=== PATIENT | female | born 1960 | race Caucasian/White ===

== ENCOUNTER → 2016-03-25 | Outpatient (CLI) | payer OTHER ==
[~2016-03-25] MED LIST: CHOL400T PO; ESTRADIOL PO; FOLI1TAB7 PO; GINK120C3 PO; IBUP-103 PO; LORA10CA2 PO; MELA1TAB54 PO; METHYLTESTOSTERONE PO; OMEP20CA9 PO; TURM1CAP2 PO
--- NOTE | 2016-03-25 17:17 | DIAGNOSTIC IMAGING REPORT ---
LUMBAR SPINE 5 VIEWS HISTORY: Pain M25.50 [id number] COMPARISON: 06/02/2011 FINDINGS: There is no fracture. No subluxation. Mild degenerative intervertebral this changes throughout. Posterior elements are intact. IMPRESSION: Mild degenerative disc change. No acute process. No change from the prior study. Electronically signed by: Rufino Hogue M.D. 03/25/2016 5:16 PM Dictated Date/Time: 03/25/2016 5:16 PM
--- NOTE | 2016-03-25 17:18 | DIAGNOSTIC IMAGING REPORT ---
LEFT HIP UNILATERAL 2 VIEWS CLINICAL HISTORY: M25.50 [id number] pain COMPARISON: None. DISCUSSION: Very subtle flattening of the articular services of the acetabulum as well as femoral head. Possibility of a component of mild nondisplaced dysplastic changes considered. No evidence for acetabular protrusion. Small benign cortical cyst posterior aspect acetabular margin. Operative changes central soft tissue pelvis. There is no evidence for soft tissue swelling. IMPRESSION: Mild nonacute dysplastic change left hip. No acute process. Electronically signed by: Rufino Hogue M.D. 03/25/2016 5:17 PM Dictated Date/Time: 03/25/2016 5:16 PM
--- NOTE | 2016-03-25 17:19 | DIAGNOSTIC IMAGING REPORT ---
RIGHT HAND MIN 3 VIEWS ROUTINE CLINICAL HISTORY: M25.50 [id number] Right pain COMPARISON: 05/27/2015 DISCUSSION: Minimal arthritic changes. No change from the prior study. Several cortical erosions of the articular services of the distal interphalangeal joints. No acute bony abnormality. There is no evidence for soft tissue swelling. IMPRESSION: Minimal degenerative change. No acute process. No change from the prior exam. Electronically signed by: Rufino Hogue M.D. 03/25/2016 5:18 PM Dictated Date/Time: 03/25/2016 5:17 PM
[2016-03-25 18:00] LABS: BASO ABS # 0.05 K/uL (0-0.2); COMPLETE YES; EOS % 4.8 %; HEMATOCRIT 39.9 % (37-47); IG% 0.2 %; LYMPH ABS # 2.17 K/uL (1.2-3.4); MEAN CELL VOLUME 92.4 fL (80-100); MEAN CORPUSCULAR HEMOGLOBIN 32.2 pg (25-34); MEAN CORPUSCULAR HGB CONC 34.8 g/dl (32-36); MEAN PLATELET VOLUME 9.4 fL (7.4-10.4); MONO % 7.9 %; NEUT % 43.1 %; PLATELET COUNT 260 K/uL (130-400); RED BLOOD COUNT 4.32 M/uL (4.2-5.4); WHITE BLOOD COUNT 5.05 K/uL (4.8-10.8)
[2016-03-25 19:04] LABS: ALT/SGPT 41 U/L (12-78); AST/SGOT 19 U/L (15-37); CREATININE 0.97 mg/dl (0.60-1.20)
[2016-03-25 19:07] LABS: ALKALINE PHOSPHATASE 93 U/L (45-117)
[2016-03-29 18:38] LABS: ALBUMIN 3.9 G/DL (3.8-4.8); GAMMA GLOBULIN 0.9 G/DL (0.8-1.7); TOTAL PROTEIN 6.5 G/DL (6.2-8.3)
== END | disposition home or self-care (01) ==
LOC: C.RAD1850 16:53
PROVIDERS: ATTEND Internal Medicine Rheumatology
DX: M25.50 Pain in unspecified joint (principal); Z11.59 Encounter for screening for other viral diseases; E55.9 Vitamin D deficiency, unspecified; Z87.2 Personal history of diseases of the skin and subcutaneous tissue

== ENCOUNTER → 2016-03-30 | Outpatient (CLI) | payer OTHER ==
--- NOTE | 2016-03-30 14:32 | DIAGNOSTIC IMAGING REPORT ---
BONE SCAN WHOLE BODY CLINICAL HISTORY: M25.50 Polyarthralgia COMPARISON STUDY: Conventional radiographic study is of the hand hip and lumbar spine dated 03/25/2016 FINDINGS: The patient was injected with 27.2 mCi of technetium 99m MDP. Three-hour delayed whole body images were acquired. Minimal increased activity within the lower lumbar spine is felt to be degenerative. The study is felt to be normal for age. There are no findings to indicate metastatic disease. IMPRESSION: Essentially normal study for age. Mild increased activity within the lower lumbar spine consistent with a degenerative etiology. Electronically signed by: George Perera M.D. 03/30/2016 2:30 PM Dictated Date/Time: 03/30/2016 2:28 PM
== END | disposition home or self-care (01) ==
LOC: C.NUCL 09:58
PROVIDERS: ATTEND Internal Medicine Rheumatology
DX: M25.50 Pain in unspecified joint (principal)

== ENCOUNTER → 2016-10-06 | Outpatient (CLI) | payer OTHER ==
[2016-10-06 17:29] LABS: BASO % 0.4 %; BASO ABS # 0.02 K/uL (0-0.2); COMPLETE YES; EOS % 0.4 %; HEMATOCRIT 40.2 % (37-47); IG% 0.4 %; LYMPH % 39.1 %; LYMPH ABS # 2.19 K/uL (1.2-3.4); MEAN CELL VOLUME 92.4 fL (80-100); MEAN CORPUSCULAR HEMOGLOBIN 31.3 pg (25-34); MEAN CORPUSCULAR HGB CONC 33.8 g/dl (32-36); MONO % 9.1 %; NEUT % 50.6 %; PLATELET COUNT 268 K/uL (130-400); RED BLOOD COUNT 4.35 M/uL (4.2-5.4)
[2016-10-06 17:53] LABS: ALT/SGPT 25 U/L (12-78); CREATININE 0.97 mg/dl (0.60-1.20)
[2016-10-06 17:55] LABS: ALKALINE PHOSPHATASE 91 U/L (45-117); AST/SGOT 11 U/L (15-37)
== END | disposition home or self-care (01) ==
LOC: C.LAB1850 16:26
PROVIDERS: ATTEND Internal Medicine Rheumatology
DX: M51.36 Other intervertebral disc degeneration, lumbar region (principal); M12.9 Arthropathy, unspecified; M54.40 Lumbago with sciatica, unspecified side; M25.562 Pain in left knee

== ENCOUNTER → 2016-11-11 | Outpatient (CLI) | payer OTHER ==
[2016-11-11 14:46] LABS: BASO % 0.9 %; BASO ABS # 0.04 K/uL (0-0.2); COMPLETE YES; HEMATOCRIT 39.6 % (37-47); IG% 0.2 %; LYMPH % 47.9 %; LYMPH ABS # 2.03 K/uL (1.2-3.4); MEAN CORPUSCULAR HEMOGLOBIN 31.7 pg (25-34); MEAN CORPUSCULAR HGB CONC 34.8 g/dl (32-36); MEAN PLATELET VOLUME 9.4 fL (7.4-10.4); MONO % 6.1 %; NEUT % 44.9 %; PLATELET COUNT 268 K/uL (130-400); RED BLOOD COUNT 4.35 M/uL (4.2-5.4); WHITE BLOOD COUNT 4.24 K/uL (4.8-10.8)
[2016-11-11 15:14] LABS: ALT/SGPT 29 U/L (12-78); CREATININE 0.89 mg/dl (0.60-1.20)
[2016-11-11 15:17] LABS: ALKALINE PHOSPHATASE 89 U/L (45-117); AST/SGOT 16 U/L (15-37)
== END | disposition home or self-care (01) ==
LOC: C.LAB1850 13:34
PROVIDERS: ATTEND Internal Medicine Rheumatology
DX: Z51.81 Encounter for therapeutic drug level monitoring (principal); Z79.899 Other long term (current) drug therapy

== ENCOUNTER → 2017-03-14 | Outpatient (CLI) | payer OTHER ==
[~2017-03-14] MED LIST changes: -FOLI1TAB7 PO; +FOLI1TAB8 PO
[2017-03-14 16:45] LABS: HEMATOCRIT 41.5 % (37-47); HEMOGLOBIN 14.2 g/dL (12.0-16.0); MEAN CELL VOLUME 93.7 fL (80-100); MEAN CORPUSCULAR HEMOGLOBIN 32.1 pg (25-34); MEAN CORPUSCULAR HGB CONC 34.2 g/dl (32-36); MEAN PLATELET VOLUME 9.5 fL (7.4-10.4); PLATELET COUNT 276 K/uL (130-400); RED CELL DISTRIBUTION WIDTH CV 13.2 % (11.5-14.5); WHITE BLOOD COUNT 4.93 K/uL (4.8-10.8)
[2017-03-14 17:23] LABS: ALBUMIN 3.5 gm/dl (3.4-5.0); ALT/SGPT 53 U/L (12-78)
[2017-03-14 17:26] LABS: ALKALINE PHOSPHATASE 90 U/L (45-117); AST/SGOT 22 U/L (15-37); TOTAL PROTEIN 7.2 gm/dl (6.4-8.2)
== END | disposition home or self-care (01) ==
LOC: C.LAB1850 15:26
PROVIDERS: ATTEND Internal Medicine Rheumatology
DX: M07.60 Enteropathic arthropathies, unspecified site (principal); K50.919 Crohn's disease, unspecified, with unspecified complications; Z79.899 Other long term (current) drug therapy

== ENCOUNTER → 2017-03-22 | Outpatient (CLI) | payer OTHER ==
--- NOTE | 2017-03-22 15:41 | DIAGNOSTIC IMAGING REPORT ---
L LOWER EXT JOINT WITHOUT CLINICAL HISTORY: LEFT ANKLE PAIN/TWIST trauma. Pain. TECHNIQUE: Multi axial MRI acquisition COMPARISON STUDY: None FINDINGS: Signal characteristics the osseous structures indicate small foci of bone marrow edema involving the central medial talar dome. This measures approximate 5 mm. There is a very small joint effusion. There is been a small 2.5 mm loose body medially anterior to the anterior margin of the talus best seen sagittal image 15. There is mild edema of the subtalar and interosseous ligament.. There is mild soft tissue edematous change about both medial as well as lateral malleolus. There is moderate tendinopathy involving the posterior tibial tendon. Peroneal tendon appears to be unremarkable. The kidneys and is intact. There is no evidence for tendinopathy of the Achilles. IMPRESSION: 1. Normal Achilles tendon. 2. Tendinopathy of the posterior tibial tendon. 3. Small osteochondral defect central talar dome with a small 2.5 mm loose body anterior to the anterior margin of the tibial talar joint 4. Mild soft tissue edema medial and lateral to the ankle area and 5. All remaining ligamentous and tendinous structures are intact. The above report was generated using voice recognition software. It may contain grammatical, syntax or spelling errors. Electronically signed by: Rufino Hogue M.D. 03/22/2017 3:39 PM Dictated Date/Time: 03/22/2017 3:30 PM
== END | disposition home or self-care (01) ==
LOC: C.MRI 14:36
PROVIDERS: ATTEND Internal Medicine Rheumatology
DX: M07.60 Enteropathic arthropathies, unspecified site (principal); Z79.1 Long term (current) use of non-steroidal anti-inflammatories (NSAID); Z79.899 Other long term (current) drug therapy

== ENCOUNTER → 2017-03-28 | Outpatient (CLI) | payer OTHER ==
[~2017-03-28] MED LIST changes: +OPTIRAY 320 IV PRN
--- NOTE | 2017-03-28 14:21 | DIAGNOSTIC IMAGING REPORT ---
CT ENTEROGRAPHY OF THE ABDOMEN AND PELVIS WITH CONTRAST CLINICAL HISTORY: Diarrhea. Crohn's disease. COMPARISON STUDY: CT of the abdomen and pelvis October 31, 2008 and small bowel follow-through June 13, 2014. TECHNIQUE: The patient was premedicated for an IV dye allergy as per protocol. The patient ingested Volumen. Following IV administration of 93 mL of Optiray-320, axial images of the abdomen and pelvis were obtained from the lung bases to the proximal femurs. Images were reviewed in the axial, sagittal, and coronal planes. IV contrast was administered without complication. A dose lowering technique was utilized adhering to the principles of ALARA. CT DOSE: 952.89 mGy.cm FINDINGS: Lung bases are clear. The liver, spleen, adrenal glands and pancreas are normal. There is no biliary ductal dilatation status post cholecystectomy. Several subcentimeter bilateral renal lesions are too small to characterize but likely reflect cysts. There is no hydronephrosis. There is no abdominal or pelvic lymphadenopathy. There is no fluid collection to suggest abscess. No perianal/perirectal abscess is identified. The patient is status post colectomy with ileoanal anastomosis. No bowel wall thickening is noted. There is no evidence for a bowel obstruction. No suspicious osseous lesions are identified. IMPRESSION: 1. No acute process within the abdomen or pelvis. 2. Status post colectomy with ileoanal anastomosis. No bowel obstruction. No bowel wall thickening. Electronically signed by: Sushant Arriaza M.D. 03/28/2017 2:19 PM Dictated Date/Time: 03/28/2017 2:11 PM
== END | disposition home or self-care (01) ==
LOC: C.CTS 12:16
PROVIDERS: ATTEND Physician Assistant
DX: R19.7 Diarrhea, unspecified (principal); K50.90 Crohn's disease, unspecified, without complications

== ENCOUNTER → 2017-05-03 | Day surgery (SDC) | payer OTHER ==
[2017-04-20 13:51] VITALS: Ht 170.2 cm; Wt 85.9 kg
[~2017-05-03] VITALS: Ht 170.2 cm; Wt 85.9 kg
[~2017-05-03] MED LIST changes: +ADAL40KI INJ; -CHOL400T PO; +CLB100 PO; +CLR10 PO; +ESTR1 PO; -ESTRADIOL PO; +FEXO1TAB49 PO; -GINK120C3 PO; -IBUP-103 PO; +LIDOCAINE HCL 2% 2 ML VIAL (20MG/ML) ONE; -LORA10CA2 PO; -MELA1TAB54 PO; +METH2.5T PO; -OMEP20CA9 PO; +OMEP40CA41 PO; -OPTIRAY 320 IV PRN; +PROPOFOL IV EMULSION 10 MG/ML 20 ML VIAL IV ONE; +SODIUM CHLORIDE 0.9% 500ML 500 ML IV ONE; -TURM1CAP2 PO
--- NOTE | 2017-05-03 12:05 | Endo History and Physical ---
History & Physical Date of Service: May 03, 2017. Chief Complaint: Crohn's Disease Referring Physician: Dr. Perez History of Present Illness 56 yo CF who presents for colonoscopy secondary to Crohn's disease. Past Medical History Arthritis, Asthma, Gastrointestinal Disorder, Anxiety, Reflux, Gynecological Problems, Chronic Steroid Use, Depression Past Surgical History Hx Cardiac Surgery: No Hx Internal Defibrillator: No Hx Pacemaker: No Hx Abdominal Surgery: Yes (ZAHIRA, J-POUCH SURGERY 2 PROCEDURE (COLON RESECTION) , BURAK, OOPHERECTOMY X 2) Hx of Implantable Prosthesis: No Hx Post-Op Nausea and Vomiting: No Hx Cancer Surgery: No Hx Thoracic Surgery: No Hx Orthopedic: No Hx Urinary Tract Surgery: No Family History Colon CA Social History Smoking Status: Never Smoker Hx Substance Use: No Hx Alcohol Use: Yes (OCCASIONALLY) Allergies Coded Allergies: Iodinated Contrast Media (Verified Allergy, Severe, SHORTNESS OF BREATH -- > TOLERATES MAGNIVEST, 05/03/17) POLLEN (Verified Allergy, Unknown, SEASONAL ALLERGIES, 05/03/17) Current Medications Reported Home Medications Medications Dose Route/Sig Max Daily Dose Days Date Category Claritin (Loratadine) 10 Mg Tab 10 Mg PO DAILY 05/03/17 Reported Celebrex (Celecoxib) 100 Mg Cap 1 Cap PO BID 04/20/17 Reported Zayra Allergy (Fexofenadine Hcl) 180 Mg Tab 1 Tab PO QAM 04/20/17 Reported Humira Pen (Adalimumab) 40 Mg/0.8 Ml Kit 1 Dose INJ [id number] 04/20/17 Reported Folvite (Folic Acid) 1 Mg Tab 1 Mg PO QAM 04/20/17 Reported [Methyltestosterone] 0.625 Cap PO QAM 04/20/17 Reported Methotrexate 2.5 Mg Tab 4 Tab PO WK 04/20/17 Reported Estrace (Estradiol) 1 Mg Tab 1 Mg PO QAM 04/20/17 Reported Prilosec (Omeprazole) 40 Mg Cap 40 Mg PO QAM 04/20/17 Reported Vital Signs Weight (Kilograms): 85.91 Height (Feet): 5 Height (Inches): 7 Date Time Temp Pulse Resp B/P (MAP) Pulse Ox O2 Delivery O2 Flow Rate FiO2 05/03/17 11:39 36.4 66 18 114/71 (85) 94 Room Air Physical Exam General Appearance: WD/WN, no apparent distress Respiratory/Chest: Auscultation: breath sounds normal Cardiovascular: Heart Auscultation: RRR Abdomen: Bowel Sounds: normal Inspection & Palpation: soft, non-distended, no tenderness, guarding & rebound Assessment and Plan Assessment: 56 yo CF who presents for colonoscopy secondary to Crohn's disease. Plan: Proceed with colonoscopy.
--- NOTE | 2017-05-03 12:59 | Discharge Instructions ---
Endoscopy Patient Instructions Date / Procedure(s) Performed May 03, 2017. Colonoscopy Allergy Information Coded Allergies: Iodinated Contrast Media (Verified Allergy, Severe, SHORTNESS OF BREATH -- > TOLERATES MAGNIVEST, 05/03/17) POLLEN (Verified Allergy, Unknown, SEASONAL ALLERGIES, 05/03/17) Discharge Date / Findings May 03, 2017. Random ileum biopsies Medication Instructions Stopped Medication(s): CELEBREX, SEASONAL MEDS, OMEPRAZOLE OK to resume all medications today as prescribed Reported Home Medications Medications Dose Route/Sig Max Daily Dose Days Date Category Claritin (Loratadine) 10 Mg Tab 10 Mg PO DAILY 05/03/17 Reported Celebrex (Celecoxib) 100 Mg Cap 1 Cap PO BID 04/20/17 Reported Zayra Allergy (Fexofenadine Hcl) 180 Mg Tab 1 Tab PO QAM 04/20/17 Reported Humira Pen (Adalimumab) 40 Mg/0.8 Ml Kit 1 Dose INJ [id number] 04/20/17 Reported Folvite (Folic Acid) 1 Mg Tab 1 Mg PO QAM 04/20/17 Reported [Methyltestosterone] 0.625 Cap PO QAM 04/20/17 Reported Methotrexate 2.5 Mg Tab 4 Tab PO WK 04/20/17 Reported Estrace (Estradiol) 1 Mg Tab 1 Mg PO QAM 04/20/17 Reported Prilosec (Omeprazole) 40 Mg Cap 40 Mg PO QAM 04/20/17 Reported Provider Instructions Activity Restrictions - No exercising or heavy lifting for 24 hours. - Do not drink alcohol the day of the procedure. - Do not drive a car or operate machinery until the day after the procedure. - Do not make any important decisions or sign important papers in 24 hours after the procedure. Following Day: - Return to full activity which may include returning to work/school. Diet Start your diet with liquids and light foods (jello, soup, juice, toast). Then eat your usual diet if not nauseated. Treatment For Common After Affects For mild abdominal pain, bloating, or excessive gas: - Rest - Eat lightly - Lie on right side Follow-Up Information Follow-up with Dr. Perez as scheduled Anesthesia Information What You Should Know You have had a procedure that required some medicine to reduce anxiety and discomfort. This treatment is called moderate sedation. After receiving the treatment, you may be sleepy, but you will be able to breathe on your own. The effects of the treatment may last for several hours. Follow these instructions along with Activity/Diet recommendations noted above: * Do NOT do anything where dizziness or clumsiness would be dangerous. * Rest quietly at home today, then you can be up and about tomorrow. * Have a responsible person stay with you the rest of today. * You may have had an I.V. today. If so, you may take the dressing off later today. Recommendations Call your doctor if: * Trouble breathing * Continuous vomiting for more than 24 hours * Temperature above 101 degrees * Severe abdominal pain or bloating * Pain not relieved by pain medicine ordered * There is increased drainage or redness from any incision * A large amount of rectal bleeding greater than 2-3 tablespoons. (If you had a polyp/s removed or have hemorrhoids, a small amount of blood - from the rectum is to be expected.) * You have any unanswered questions or concerns. IN THE EVENT OF A SERIOUS EMERGENCY, GO TO THE NEAREST EMERGENCY ROOM Your discharge instructions were prepared by provider Ignacio Ma. Patient Instructions Signature Page [place] Patient (or Guardian) Signature/Date: I have read and understand the instructions given to me by my caregivers. Caregiver/RN/Doctor Signature/Date: The above-named patient and/or guardian has received patient instructions on this date. + Original Patient Signature Page (only) stays with chart. Please make copy for patient.
--- NOTE | 2017-05-03 13:06 | GI REPORT ---
Procedure Date: 05/03/2017 12:29 PM Procedure: Colonoscopy Indications: Disease activity assessment of Crohn's disease of the small bowel, Disease activity assessment of Crohn's disease of the small bowel and colon Medicines: Monitored Anesthesia Care Complications: No immediate complications. Estimated Blood Loss: Estimated blood loss: none. Procedure: Pre-Anesthesia Assessment: - Prior to the procedure, a History and Physical was performed, and patient medications and allergies were reviewed. The patient's tolerance of previous anesthesia was also reviewed. The risks and benefits of the procedure and the sedation options and risks were discussed with the patient. All questions were answered, and informed consent was obtained. Prior Anticoagulants: The patient has taken no previous anticoagulant or antiplatelet agents. ASA Grade Assessment: II - A patient with mild systemic disease. After reviewing the risks and benefits, the patient was deemed in satisfactory condition to undergo the procedure. After I obtained informed consent, the scope was passed under direct vision. Throughout the procedure, the patient's blood pressure, pulse, and oxygen saturations were monitored continuously. The On-site loaner was introduced through the anus and advanced to the terminal ileum. The colonoscopy was performed without difficulty. The patient tolerated the procedure well. The quality of the bowel preparation was good. The terminal ileum and the rectum were photographed. Findings: The perianal and digital rectal examinations were normal. The huber-terminal ileum appeared normal. Biopsies were taken with a cold forceps for histology. Impression: - The examined portion of the ileum was normal. Biopsied. Recommendation: - Resume previous diet. - Continue present medications. - Repeat colonoscopy for surveillance based on pathology results. - Return to primary care physician as previously scheduled. Ignacio Ma DO 05/03/2017 1:05:43 PM This report has been signed electronically. Note Initiated On: 05/03/2017 12:29 PM I attest to the content of the Intraoperative Record and orders documented therein, exceptions below
[2017-05-03 13:23] VITALS: BP 102/73; PULSE 63; O2SAT 96
== END | disposition home or self-care (01) ==
LOC: C.GI 10:49
PROVIDERS: ATTEND Internal Medicine
DX: K50.90 Crohn's disease, unspecified, without complications (principal); K52.9 Noninfective gastroenteritis and colitis, unspecified; M19.90 Unspecified osteoarthritis, unspecified site; J45.909 Unspecified asthma, uncomplicated; F41.9 Anxiety disorder, unspecified; F32.9 Major depressive disorder, single episode, unspecified; K21.9 Gastro-esophageal reflux disease without esophagitis; Z79.52 Long term (current) use of systemic steroids; Z91.040 Latex allergy status; Z79.899 Other long term (current) drug therapy; Z79.4 Long term (current) use of insulin

== ENCOUNTER → 2017-08-30 | Outpatient (CLI) | payer OTHER ==
[~2017-08-30] MED LIST changes: -LIDOCAINE HCL 2% 2 ML VIAL (20MG/ML) ONE; -PROPOFOL IV EMULSION 10 MG/ML 20 ML VIAL IV ONE; -SODIUM CHLORIDE 0.9% 500ML 500 ML IV ONE
[2017-08-30 15:38] LABS: HEMATOCRIT 40.9 % (37-47); HEMOGLOBIN 14.1 g/dL (12.0-16.0); MEAN CELL VOLUME 91.1 fL (80-100); MEAN CORPUSCULAR HEMOGLOBIN 31.4 pg (25-34); MEAN CORPUSCULAR HGB CONC 34.5 g/dl (32-36); MEAN PLATELET VOLUME 9.5 fL (7.4-10.4); PLATELET COUNT 249 K/uL (130-400); RED CELL DISTRIBUTION WIDTH CV 13.6 % (11.5-14.5); RED CELL DISTRIBUTION WIDTH SD 44.4 fL (36.4-46.3); WHITE BLOOD COUNT 4.29 K/uL (4.8-10.8)
[2017-08-30 16:01] LABS: BASO % 1.2 %; BASO ABS # 0.05 K/uL (0-0.2); EOS ABS # 0.13 K/uL (0-0.5); IG# 0.01 K/uL (0.00-0.02); LYMPH % 50.1 %; LYMPH ABS # 2.15 K/uL (1.2-3.4); MONO % 6.1 %; MONO ABS # 0.26 K/uL (0.11-0.59); NEUT % 39.4 %; NEUT ABS # 1.69 K/uL (1.4-6.5)
[2017-08-30 16:08] LABS: ALBUMIN 3.7 gm/dl (3.4-5.0); ALKALINE PHOSPHATASE 95 U/L (45-117); ALT/SGPT 33 U/L (12-78); AST/SGOT 21 U/L (15-37); CREATININE 0.92 mg/dl (0.60-1.20)
== END | disposition home or self-care (01) ==
LOC: C.LAB1850 14:10
PROVIDERS: ATTEND Internal Medicine Rheumatology
DX: K50.90 Crohn's disease, unspecified, without complications (principal); Z79.899 Other long term (current) drug therapy; M07.60 Enteropathic arthropathies, unspecified site; Z79.1 Long term (current) use of non-steroidal anti-inflammatories (NSAID); M25.572 Pain in left ankle and joints of left foot